=== PATIENT | male | born 1960 | race Caucasian/White ===

== ENCOUNTER 2022-03-08 17:55 | Emergency (ER) | payer SELFPAY ==
[2022-03-08 18:20] LABS: HEMOGLOBIN 7.8 gm/dl (14.0-17.5); RED BLOOD COUNT 2.88 M/UL (4.20-5.50); WHITE BLOOD COUNT 8.2 K/UL (4.5-11.0)
[2022-03-08 18:54] LABS: BUN/CREATININE RATIO 12 (0-10)
== END 2022-03-08 21:30 | disposition expired ==
LOC: ER1 17:55
PROVIDERS: Family Medicine
DX: I46.9 Cardiac arrest, cause unspecified (principal); I95.9 Hypotension, unspecified; D49.1 Neoplasm of unspecified behavior of respiratory system; Z20.822 Contact with and (suspected) exposure to COVID-19; R00.1 Bradycardia, unspecified; D69.6 Thrombocytopenia, unspecified; R56.9 Unspecified convulsions; F19.10 Other psychoactive substance abuse, uncomplicated
CPT/HCPCS: 31500; 36600; 71045; 80053; 82550; 82553; 82803; 83605; 83690; 83735; 84484; 85025; 87040; 92950; 94002; 99285; G0480; J0171; J0282; J0461; J1250; J2060; J7070; U0002